=== PATIENT | female | born 1955 | race Caucasian/White ===

== ENCOUNTER 2020-07-06 14:23 | Outpatient (CLI) | payer MEDICARE, SELFPAY ==
--- NOTE | 2020-07-06 14:30 | MM_ITS ---
WS: [id number] BILATERAL SCREENING DIGITAL MAMMOGRAM WITH CAD HISTORY: SCREENING COMPARISON: None available. Bilateral CC and MLO views submitted. Computer aided detection analyzed. Breast composition: There are scattered areas of fibroglandular density. No suspicious masses, microc alcifications or architectural distortion. Benign calcifications in each breast. MM/[place] [id number] IMPRESSION: BI-RADS: 2-Benign FOLLOW UP: 1 Year Follow-up
== END 2020-07-06 14:24 | disposition home or self-care (01) ==
LOC: RADSHAW 14:28
PROVIDERS: PCP Family Medicine; Visit Provider Family Medicine
DX: Z12.31 Encounter for screening mammogram for malignant neoplasm of breast (principal)
CPT/HCPCS: 77067

== ENCOUNTER 2020-07-13 12:30 | Outpatient (CLI) | payer MEDICARE, SELFPAY ==
--- NOTE | 2020-07-13 12:45 | USCV_ITS ---
Rose Philip Age: 65 Gender: F : 1955 Exam Date: 07/13/2020 13:13 Ordering Phys: Tato Yang MD ([email or web address]) Technologist: Dick Nunez Exam Location: [facility] [place] Indication: BRUIT Risk Factors: Previous Vascular Surgery: Right Brachial BP: / Left Brachial BP: / Right Left Velocity (cm/s) Spectral Plaque Velocity (cm/s) Spectral Plaque Syst/Diast Broadening Syst/Diast Broadening 93.70/ 16.50 Prox CCA 95.00 / 28.50 84.90/ 26.50 Mid CCA 82.10 / 21.00 64.10/ 16.20 Distal CCA 69.20 / 20.40 114.40/32.90 Prox ICA 129.60/ 39.50 114.40/34.20 Mid ICA 111.10/ 32.10 120.90/30.20 Distal ICA 93.70 / 29.80 163.00 ECA 122.20 1.35 ICA/CCA 1.35 Antegrade Vertebral Antegrade 74.90/ 23.70 cm/s 54.30/ 13.00 cm/s Tri Subclavian Tri 83.10 89.60 CONCLUSIONS Right ICA stenosis <50%. Mild atheromatous plaque right carotid bulb/ICA. Left ICA stenosis 50-69% at the lower end of the range. Mild atheromatous plaque left carotid bulb/ICA. Normal antegrade Doppler flow noted in the right vertebral artery. Normal antegrade Doppler flow noted in the left vertebral artery. Trino Patton MD (Electronically Signed) Final Date: 13 July 2020 17:44 S
== END 2020-07-13 12:31 | disposition home or self-care (01) ==
LOC: US 12:31
PROVIDERS: PCP Family Medicine; Visit Provider Internal Medicine Cardiovascular Disease
DX: R09.89 Other specified symptoms and signs involving the circulatory and respiratory systems (principal); I65.23 Occlusion and stenosis of bilateral carotid arteries; I10 Essential (primary) hypertension
CPT/HCPCS: 93880

== ENCOUNTER 2021-04-26 07:26 | Outpatient (CLI) | payer MEDICARE, SELFPAY ==
--- NOTE | 2021-04-26 08:18 | ECG_ITS ---
[facility] Test Date: 2021-04-26 Pat Name: Rsoe Phiilp Department: Room: Gender: Female E Business Consultant: Alysa Mayo : 1955 Requested By: Cassandra Quintanilla Order Number: [id number] Reading MD: CASSANDRA QUINTANILLA Interpretive Statements NAME OF STUDY: EXERCISE SESTAMIBI STRESS TEST INDICATION: Chest Pain, EXERCISE DATA: The patient was exercised by Dangelo protocol. Baseline heart rate was 83 beats per minute. Baseline blood pressure was 173/101 millimeters of mercury. Target heart rate was 155 beats per minute. Maximum heart rate achieved was 149, which was 96 % of the target heart rate. Maximum blood pressure was 182/104 millimeters of mercury. Total exercise time was 3 minutes 30 seconds. Maximum METs achieved was 7.0, maximum VO2 was 24.5. The reason for ending the test was maximum effort achieved. The patient complained of shortness of during the stress test, which then resolved at the end of the test. ELECTROCARDIOGRAM: BASELINE: Showed sinus rhythm, normal axis, no significant ST-T changes at the baseline noted. EXERCISE: At the peak exercise level, no significant ST-T changes suggestive of ischemia noted. RECOVERY: During the recovery period, heart rate dropped appropriately. No significant ST-T changes in the recovery suggestive of ischemia noted. CONCLUSION: 1. Exercise capacity poor. 2. Heart rate response was appropriate. 3. Blood pressure response was hypertensive. 4. Symptoms not suggestive of ischemia. 5. Electrocardiogram portion of the stress test was not suggestive of ischemia. 6. Nuclear scan will be documented separately. Please note that due to under achievement of METs and lower exercise capacity EKG segment of the stress test will be of low probability Electronically Signed On 04-28-2021 21:14:41 CDT by CASSANDRA QUINTANILLA [email or web address].[email or web address]/store/[id number]
--- NOTE | 2021-04-26 08:18 | NMCV_ITS ---
NM chris perf SPECT r/s* [id number] Rose Philip Age: 65 Gender: F : 1955 Exam Date: 04/26/2021 09:24 Ordering Phys: Tato Yang MD ([email or web address]) Technologist: JAYY Galdamez Exam Location: [facility] Indications: ASHD STRESS TEST Please see separate stress test report in [facility] for full findings IMAGE PROTOCOL Rest/Stress 1 Exercise Day Radiopharmaceutical Dose (mCi) Administration Site Administered by Rest: Tc-99m 10.8 IV JAYY Chau Sestamibi Stress:Tc-99m 32.5 IV JAYY Chau Sestamibi Rest: 26-Apr-2021 60 Discovery 630 Stress: 26-Apr-2021 15 Discovery 630 Radiopharmaceutical was injected at 89images obtained in supine and prone position. % maximum heart rate. SPECT RESULTS Technical Quality: Excellent Raw Data Analysis: Normal Image Corrections: No attenuation or motion correction applied Summed Stress Score: 0 Summed Rest Score: 0 Summed Difference Score: 0 PERFUSION FINDINGS SPECT images demonstrate homogeneous tracer distribution throughout the myocardium. FUNCTIONAL RESULTS (calculated via Gated SPECT) Stress Image LV EF (%): 83 Stress EDV (mL):47 TID: 1.1 Stress ESV (mL):8 Rest Image LV EF (%): 83 FUNCTIONAL FINDINGS: There is normal left ventricular systolic function. IMPRESSIONS Myocardial perfusion imaging is normal. TID ratio is elevated at 1.1 which could be secondary left ventricle hypertrophy/subendocardial ischemia in the absence of other parameters for coronary artery disease. EKG segment will be documented separately. Tato Yang MD (Electronically Signed) Final Date: 26 April 2021 22:05 S
[2021-04-26 08:25] VITALS: BMI 31.8
[2021-04-26 10:19] VITALS: BP 161/85; PULSE 101
== END 2021-04-26 07:27 | disposition home or self-care (01) ==
PROVIDERS: PCP Family Medicine; Visit Provider Internal Medicine Cardiovascular Disease
DX: R07.9 Chest pain, unspecified (principal); I25.10 Atherosclerotic heart disease of native coronary artery without angina pectoris
CPT/HCPCS: 78452; 93017; A9500

== ENCOUNTER 2021-11-16 15:54 | Outpatient (CLI) | payer MEDICARE, SELFPAY ==
--- NOTE | 2021-11-16 15:56 | XRR_ITS ---
PROCEDURE INFORMATION: Exam: XR Chest Exam date and time: 11/16/2021 3:56 PM Age: 66 years old Clinical indication: Sternal or substernal pain; Additional info: Cp TECHNIQUE: Imaging protocol: XR of the chest. Views: 1 view. COMPARISON: CR Chest 2 views* [id number] 04/16/2017 4:12 PM FINDINGS: Lungs: Mild linear atelectasis or scar in the left lung base. The lungs are otherwise clear. Pleural spaces: Unremarkable. No pleural effusion. No pneumothorax. Heart/Mediastinum: Unremarkable. No cardiomegaly. Bones/joints: Unremarkable. XR/XR chest 1V portable [id number] IMPRESSION: No acute findings.
--- NOTE | 2021-11-16 15:56 | ECG_ITS ---
[facility] Test Date: 2021-11-16 Pat Name: Rose Philip Department: Room: Gender: Female System Operator: : 1955 Requested By: Ramesh Tabares Order Number: [id number] Kandi MD: Hema Sr M.D. Measurements Intervals [place] Rate: 71 P: 61 VA: 134 QRS: 40 QRSD: 97 T: 56 QT: 405 QTc: 441 Interpretive Statements SINUS RHYTHM INTERPRETATION BASED ON A DEFAULT AGE OF 40 YEARS Compared to ECG 04/16/2017 18:42:32 No significant changes Electronically Signed On 11-16-2021 20:05:43 CONCRETE BLOCK LAYER by Hema Sr M.D. [email or web address] general hospitalCardiva Medicaltrumbull regional medical centerHealth Strategies Group/store/NU/[id number] f
[2021-11-16 15:58] VITALS: BP 158/82; PULSE 69; RESP 16; O2SAT 96; BMI 32.9
--- NOTE | 2021-11-16 16:02 | W.ED.CHESTPA ---
HPI - Chest Pain General: Chief Complaint: Chest Pain Stated Complaint: L ARM PAIN/ HYPERTENSIVE Time Seen by Provider: 11/16/21 15:55 Source: patient and EMS Mode of arrival: EMS Limitations: no limitations History of Present Illness: 66-year-old female states that throughout the day today she been having some pain in her left shoulder along with high blood pressure states she took 2 clonidine and 3 nitro at home with little relief EMS states they gave her 1 nitro her blood pressure is now 158/82. States her pain is resolved. She does have a history of coronary disease with stents placed she had a stress test roughly 4 months ago that was negative. She denies any vomiting denies any shortness of breath. Associated symptoms: Deny abdominal pain, dyspnea, fever(s), nausea or vomiting Review of Systems Const: Denies: fever(s), chills, body aches or change in appetite Eyes: Denies: blurry vision or eye discomfort ENMT: Denies: throat pain or dental pain Card: Denies: chest pain Resp: Denies: dyspnea GI: Denies: abdominal pain, nausea, vomiting or diarrhea : Denies: dysuria Musc: Reports: extremity pain Skin/Breast: Denies: rash Neuro: Denies: headache(s) Psych: Denies: depression Maurice/Lymph: Denies: easy bruising All/Imm: Denies: urticaria PFSH ED PFSH: Medical History ASHD (arteriosclerotic heart disease) HTN (hypertension) Hx of coronary artery disease Family History Other Cancer Diabetes Physical Exam Const: COMMON NORMALS: no acute distress, patient oriented x3 and healthy appearing HENMT: COMMON NORMALS: normocephalic and atraumatic HEAD & SCALP: normocephalic and atraumatic Eye: COMMON NORMALS: Equal, round and reactive pupils present and EOMs intact bilaterally PUPIL: Yes Equal, round and reactive pupils present Neck/C-Spine: COMMON NORMALS: full ROM and supple Chest: COMMONS NORMALS: normal inspection of the chest and normal palpation of entire chest wall Resp: COMMON NORMALS: normal respiratory effort, No retractions, No use of accessory muscles and clear to auscultation bilaterally AUSCULTATION: clear to auscultation bilaterally Cardio: COMMON NORMALS: regular rate, regular rhythm and No murmurs present (Cardio) RATE: regular rate RHYTHM: regular rhythm GI: COMMON NORMALS: Normal to inspection, nondistended, normoactive bowel sounds present, Soft to palpation, non-tender and no masses PALPATION: Yes Soft to palpation Extremity: COMMON NORMALS: normal to inspection and full ROM Neuro: COMMON NORMALS: patient oriented x3, moves all extremities and no focal motor deficits Psych: COMMON NORMALS: mental status grossly normal, Normal thought process present and cooperative THOUGHT PROCESS: Normal thought process present Skin: COMMON NORMALS: no rashes or lesions noted and no wounds GENERAL SKIN EXAM: no rashes or lesions noted Course Vital Signs: Vital signs: Vital Signs Pulse Rate 68 11/16/21 19:11 Respiratory Rate 17 11/16/21 19:11 Blood Pressure 121/70 11/16/21 19:11 Pulse Oximetry 97 11/16/21 19:11 MDM - Chest Pain Medical Decision Making Patient presents here with chest pain her EKG x-ray and troponins here are all normal. Her blood pressure is improved as well. She has no signs of acute coronary syndrome she is stable for discharge she is to follow-up with her vertical punch operator and return if worsening she understands agrees to plan. Lab Data : 11/16/21 15:44 11/16/21 15:44 Radiology Impressions Chest X-Ray 11/16/21 15:56 IMPRESSION: No acute findings. Laboratory Results WBC 8.0 10^3/uL (4.0-10.0) 11/16/21 15:44 RBC 4.32 10^6/uL (4.1-5.3) 11/16/21 15:44 Hgb 12.8 g/dL (11.5-15.3) 11/16/21 15:44 Hct 40.8 % (37.0-47.0) 11/16/21 15:44 MCV 94.4 fl (81-99) 11/16/21 15:44 MCH 29.6 pg (28.0-34.0) 11/16/21 15:44 MCHC 31.4 g/dL (30.0-36.0) 11/16/21 15:44 RDW 13.4 % (12.1-15.1) 11/16/21 15:44 Plt Count 279 10^3/cmm (130-400) 11/16/21 15:44 MPV 10.8 fL (7.4-10.4) H 11/16/21 15:44 Neut % (Auto) 55.5 % 11/16/21 15:44 Lymph % (Auto) 30.8 % 11/16/21 15:44 Garza % (Auto) 7.1 % 11/16/21 15:44 Eos % (Auto) 5.6 % 11/16/21 15:44 Baso % (Auto) 0.6 % 11/16/21 15:44 Neut # (Auto) 4.45 10^3/uL (1.8-7.7) 11/16/21 15:44 Lymph # (Auto) 2.5 10^3/uL (0.8-4.8) 11/16/21 15:44 Garza # (Auto) 0.6 10^3/uL (0.2-0.9) 11/16/21 15:44 Eos # (Auto) 0.5 10^3/uL (0.0-0.8) 11/16/21 15:44 Baso # (Auto) 0.1 10^3/uL (0.0-0.1) 11/16/21 15:44 Nucleated RBC % (auto) 0 % 11/16/21 15:44 Nucleated RBCs # 0.0 /100WBC 11/16/21 15:44 Sodium 143 mmol/L (136-145) 11/16/21 15:44 Potassium 4.2 mmol/L (3.5-5.1) 11/16/21 15:44 Chloride 105 mmol/L (98-107) 11/16/21 15:44 Carbon Dioxide 24 mmol/L (22-29) 11/16/21 15:44 Anion Gap 18.2 (5-19) 11/16/21 15:44 BUN 23 mg/dL (8-23) 11/16/21 15:44 Creatinine 1.4 mg/dL (0.5-0.9) H 11/16/21 15:44 GFR Calculation 37.6 mL/min (90-130) L 11/16/21 15:44 Glucose 86 mg/dL (65-115) 11/16/21 15:44 Calculated Osmolality 299 mOsm/kg (285-295) H 11/16/21 15:44 Calcium 9.2 mg/dL (8.5-10.5) 11/16/21 15:44 Total Bilirubin 0.5 mg/dL (0.15-1.2) 11/16/21 15:44 AST 15 U/L (0-32) 11/16/21 15:44 ALT 13 U/L (0-33) 11/16/21 15:44 Alkaline Phosphatase 109 IU/L (35-105) H 11/16/21 15:44 Troponin T Baseline 11 ng/L (0-10) H 11/16/21 15:44 Troponin T 120 Minute 12.51 ng/L (0-10) H 11/16/21 18:13 Delta Troponin T 1.51 ABS# (0-10) 11/16/21 18:13 Total Protein 7.2 g/dL (6.6-8.7) 11/16/21 15:44 Albumin 4.7 g/dL (3.5-5.2) 11/16/21 15:44 Globulin 2.5 g/dL (1.3-4.6) 11/16/21 15:44 EKG Data EKG 1: I personally reviewed and interpreted this EKG as follows: EKG interpretation date: 11/16/21 EKG interpretation time: 16:12 Interpretation: nsr hr [address] or t wave abnormalities qrs 97 qtc 427 Discharge Plan Discharge Patient Disposition: Home Clinical Impression: Chest pain, HTN (hypertension) Condition: Stable Prescriptions: No Action diphenhydramine-acetaminophen [Tylenol PM Extra Strength] 25-500 mg tablet 1 tab PO Q6H PRN0RF melatonin 10 mg capsule 10 mg PO DAILY 0RF fluoxetine 40 mg capsule 40 mg PO DAILY 0RF clonazepam 0.5 mg tablet 0.5 mg PO DAILY PRN (Reason: anxiety) 0RF nitroglycerin 0.4 mg tablet, sublingual 0.4 mg sublingual Q5M PRN (Reason: chest pain) 0RF temazepam 30 mg capsule 30 mg PO QDAY 30 Days Qty: 30 0RF Rx Instructions: Please call to schedule an appointment before further refills cyanocobalamin (vitamin B-12) 1,000 mcg/mL solution 1,000 mcg IM .qweekly 28 Days Qty: 10 3RF atorvastatin 20 mg tablet 20 mg PO DAILY Qty: 90 3RF aspirin [Adult Low Dose Aspirin] 81 mg tablet,delayed release (DR/EC) 81 mg PO DAILY Qty: 90 3RF tizanidine 2 mg tablet 2 mg PO .at bedtime PRN (Reason: muscle spasticity) Qty: 30 3RF clonidine HCl 0.1 mg tablet 0.1 mg PO QID PRN (Reason: hypertensive emergency) Qty: 360 3RF BD Insulin Syringe 1 mL 25 x 1 syringe See Rx Instructions .ROUTE .COMPLEX Qty: 4 6RF Dose Instruction: USE TO GIVE B12 INJECTION EVERY WEEK Rx Instructions: USE TO GIVE B12 INJECTION EVERY WEEK meloxicam 15 mg tablet See Rx Instructions .ROUTE .COMPLEX Qty: 30 2RF Dose Instruction: TAKE 1 TABLET BY MOUTH EVERY DAY Rx Instructions: TAKE 1 TABLET BY MOUTH EVERY DAY losartan-hydrochlorothiazide 50-12.5 mg tablet 1 tab PO DAILY Qty: 90 3RF amlodipine 5 mg tablet See Rx Instructions .ROUTE .COMPLEX Qty: 90 3RF Dose Instruction: TAKE 1 TABLET BY MOUTH EVERY DAY Rx Instructions: TAKE 1 TABLET BY MOUTH EVERY DAY isosorbide mononitrate 30 mg tablet extended release 24 hr 15 mg PO DAILY Qty: 45 3RF Discharge Orders: Discharge ED (Routine); Ordered 11/16/21 Ordered By: Ramesh Tabares Referrals: Hema Sr MD [Physician] - 1-3 days Gurvinder Ontiveros MD [Primary Care Provider] - Discharge Diet: Advance as tolerated Discharge Activity: Resume usual activity Patient Instructions: Chest Pain (ED), Hypertension (ED) Coding Level of Care Code ED Underwriting Account Representative for Chg Fwd Exam Comprehensive
[2021-11-16 16:09] LABS: Basophils # 0.1 10^3/uL (0.0-0.1); Basophils % 0.6 %; Eosinophils # 0.5 10^3/uL (0.0-0.8); Eosinophils % 5.6 %; Hematocrit 40.8 % (37.0-47.0); Hemoglobin 12.8 g/dL (11.5-15.3); Lymphocytes # 2.5 10^3/uL (0.8-4.8); Lymphocytes % 30.8 %; Mean Corpuscular HGB Conc 31.4 g/dL (30.0-36.0); Mean Corpuscular Hemoglobin 29.6 pg (28.0-34.0); Mean Corpuscular Volume 94.4 fl (81-99); Mean Platelet Volume 10.8 fL (7.4-10.4); Monocytes # 0.6 10^3/uL (0.2-0.9); Monocytes % 7.1 %; Neutrophils # 4.45 10^3/uL (1.8-7.7); Neutrophils % 55.5 %; Nucleated Red Blood Cells % 0 %; Platelet Count 279 10^3/cmm (130-400); Red Blood Count 4.32 10^6/uL (4.1-5.3); Red Cell Distribution Width 13.4 % (12.1-15.1)
[2021-11-16 16:26] LABS: Alanine Aminotransferase 13 U/L (0-33); Albumin Level 4.7 g/dL (3.5-5.2); Alkaline Phosphatase 109 IU/L (35-105); Anion Gap 18.2 (5-19); Aspartate Amino Transferase 15 U/L (0-32); Blood Urea Nitrogen 23 mg/dL (8-23); Calcium 9.2 mg/dL (8.5-10.5); Carbon Dioxide 24 mmol/L (22-29); Chloride 105 mmol/L (98-107); Globulin 2.5 g/dL (1.3-4.6); Glomerular Filtration Rate 37.6 mL/min (90-130); Glucose 86 mg/dL (65-115); Osmolality Calculated 299 mOsm/kg (285-295); Potassium 4.2 mmol/L (3.5-5.1); Sodium 143 mmol/L (136-145); Total Bilirubin 0.5 mg/dL (0.15-1.2); Total Protein 7.2 g/dL (6.6-8.7)
[2021-11-16 16:32] LABS: Troponin(5th) Baseline 11 ng/L (0-10)
[2021-11-16 17:37] VITALS: BP 139/76; PULSE 72; RESP 16; O2SAT 94
--- NOTE | 2021-11-16 17:56 | ECG_ITS ---
[facility] Test Date: 2021-11-16 Pat Name: Rose Philip Department: Room: Gender: Female Contract Processor: : 1955 Requested By: Ramesh Tabares Order Number: [id number] Kandi MD: Hema Sr M.D. Measurements Intervals [place] Rate: 65 P: 56 [place]: 134 QRS: 38 QRSD: 92 T: 52 QT: 411 QTc: 428 Interpretive Statements SINUS RHYTHM Compared to ECG 04/16/2017 18:42:32 No significant changes Electronically Signed On 11-16-2021 20:14:06 FISH HATCHERY INSPECTOR by Hema Sr M.D. [email or web address].[employer]/store/OM/[id number]
[2021-11-16 18:57] LABS: Troponin 5 2HR 12.51 ng/L (0-10)
[2021-11-16 19:01] LABS: Troponin 5 2HR Delta 1.51 ABS# (0-10)
[2021-11-16 19:11] VITALS: BP 121/70; PULSE 68; RESP 17; O2SAT 97
[2021-11-16 19:31] VITALS: BP 131/82; PULSE 69; RESP 17; O2SAT 95
--- NOTE | 2021-11-20 12:14 | XRR_ITS ---
PROCEDURE INFORMATION: Exam: XR Right Ribs Exam date and time: 11/20/2021 12:14 PM Age: 66 years old Clinical indication: Fall with blunt trauma. Pain after fall. TECHNIQUE: Imaging protocol: XR Right ribs. Views: 2 views. COMPARISON: CR XR chest 1V portable [id number] 11/16/2021 4:26 PM FINDINGS: Bones/joints: No acute fracture is identified. Soft tissues: The visualized chest is grossly clear. No gross soft tissue swelling. XR/XR ribs RT 2V* [id number] IMPRESSION: 1. No acute fracture is identified. 2. Consider CT to further assess if clinically warranted.
--- NOTE | 2021-11-21 15:45 | DCPLANNER ---
Addendum entered by Isis Stoll 12/22/21 08:34: Patient had a follow up appointment scheduled for 11.29.21 with LOCKSTITCHERSarina at [facility] - patient did attend appointment. Original Note: software test manager had message to schedule a follow up appointment for patient with [facility]. software test manager called [facility], spoke with Aruna, gave clinic patients information. A follow up appointment was scheduled for Monday, November 29, 2021 at 2:00 with LOCKSTITCHER, Sarina Ashby. software test manager called and gave patient the follow up appointment.
== END 2021-11-20 11:47 | disposition home or self-care (01) ==
LOC: ER 19:10 → RAD 11-20 11:51
PROVIDERS: Emergency Provider Emergency Medicine; PCP Family Medicine; Visit Provider Nurse Practitioner
DX: R07.81 Pleurodynia (principal); I10 Essential (primary) hypertension
CPT/HCPCS: 71045; 71100; 80053; 84484; 85025; 93005; 99283; 99284

== ENCOUNTER → 2021-11-29 13:44 | Outpatient (BNVA) | payer MEDICARE, SELFPAY | PROVIDERS: PCP Family Medicine; Visit Provider Nurse Practitioner Family | DX: I65.22 Occlusion and stenosis of left carotid artery (principal); R07.9 Chest pain, unspecified; Z87.891 Personal history of nicotine dependence; I25.10 Atherosclerotic heart disease of native coronary artery without angina pectoris | CPT/HCPCS: 99214 ==

== ENCOUNTER → 2021-12-15 13:48 | Outpatient (BNVA) | payer MEDICARE, SELFPAY | PROVIDERS: PCP Family Medicine; Visit Provider Internal Medicine | DX: R06.02 Shortness of breath (principal); I10 Essential (primary) hypertension; I25.10 Atherosclerotic heart disease of native coronary artery without angina pectoris; Z87.891 Personal history of nicotine dependence | CPT/HCPCS: 99214 ==

== ENCOUNTER 2022-01-04 07:45 | Outpatient (CLI) | payer MEDICARE, SELFPAY ==
--- NOTE | 2022-01-04 08:00 | USCV_ITS ---
Rose Philip Age: 66 Gender: F : 1955 Exam Date: 01/04/2022 07:51 Ordering Phys: Sarina Ashby Technologist: Exam Location: [place] Indication: cca disease Risk Factors: None Previous Vascular Surgery: Right Brachial BP: / Left Brachial BP: / Right Left Velocity (cm/s) Spectral Plaque Velocity (cm/s) Spectral Plaque Syst/Diast Broadening Syst/Diast Broadening 60.60/ 18.70 Prox CCA 69.50 / 19.80 71.70/ 22.10 Mid CCA 70.60 / 17.60 62.80/ 20.35 Distal CCA 72.80 / 27.60 82.70/ 35.30 Hetro Prox ICA 97.20 / 27.80 Hetro 94.80/ 27.60 Hetro Mid ICA 118.10/ 33.30 Hetro 94.80/ 26.50 Distal ICA 94.50 / 23.60 90.40 ECA 95.90 1.32 ICA/CCA 1.62 Antegrade Vertebral Antegrade 62.80/ 18.70 cm/s / cm/s Tri Subclavian Tri 99.20 90.90 CONCLUSIONS Right ICA stenosis <50%. Mild atheromatous plaque right carotid bulb/ICA. Left ICA stenosis <50%. Mild atheromatous plaque left carotid bulb/ICA. Normal antegrade Doppler flow noted in the left vertebral artery. Normal antegrade Doppler flow noted in the right vertebral artery. Trino Patton MD (Electronically Signed) Final Date: 05 January 2022 11:25 S
== END 2022-01-04 07:46 | disposition home or self-care (01) ==
LOC: RAD 07:46
PROVIDERS: PCP Family Medicine; Visit Provider Nurse Practitioner Family
DX: I65.23 Occlusion and stenosis of bilateral carotid arteries (principal)
CPT/HCPCS: 93880

== ENCOUNTER 2022-01-10 07:05 | Outpatient (CLI) | payer MEDICARE, SELFPAY ==
[2022-01-10 07:09] VITALS: BMI 34.2
--- NOTE | 2022-01-10 07:10 | ECG_ITS ---
[facility] Test Date: 2022-01-10 Pat Name: Rose Philip Department: Room: Gender: Female Count Room Clerk: : 1955 Requested By: Robert Flynn Order Number: [id number] Kandi MD: Robert Flynn M.D. Interpretive Statements NAME OF STUDY: LEXISCAN SESTAMIBI STRESS TEST INDICATION: [Chest Pain; Shortness of Breath] Procedure: At the baseline, the blood pressure was 164/97 mmHg with a heart rate of 57 bpm. The electrocardiogram showed sinus bradycaria, normal axis with normal ST and T's. The Lexiscan was infused over a period of 20 seconds. A total of 0.4 mg of Lexiscan was infused. The stress phase was continued for a total of 5 minutes. Heart rate was at the end of stress phase was 79 bpm and a blood pressure of 158/95 mmHg. The EKG at the peak infusion revealed since normal sinus rhythm with no significant ST-T wave changes. Sestamibi was injected 20 seconds after the Lexiscan infusion. Blood pressure at the end of recovery phase was 165/101 mmHg with a heart rate of 72 bpm. Conclusion: 1. Normal EKG response to Lexiscan infusion 2. No Lexiscan induced chest pain or cardiac arrhythmia. 3. Normal blood pressure and heart rate response. 4. Sestamibi/sestamibi perfusion scan pending; see separate report. Electronically Signed On 02-05-2022 21:34:48 CDT by Robert Flynn M.D. [id number]
--- NOTE | 2022-01-10 07:10 | NMCV_ITS ---
NM chris perf SPECT r/s* [id number] Rose Philip Age: 66 Gender: F : 1955 Exam Date: 01/10/2022 08:23 Ordering Phys: Robert Flynn M.D ([email or web address]) Technologist: JAYY Galdamez Exam Location: [facility] Indications: SHORTNESS OF BREATH STRESS TEST Please [facility] IMAGE PROTOCOL Rest/Stress 1 Lexiscan Day Radiopharmaceutical Dose (mCi) Administration Site Administered by Rest: Tc-99m 10.7 IV JAYY Chau Sestamibi Stress:Tc-99m 32.9 IV JAYY Galdamez Sestamikaylyn Rest: 10-Jan-2022 60 Discovery 630 Stress: 10-Jan-2022 30 Discovery 630 0.4mg Lexiscan. Images obtained in supine and prone position. SPECT RESULTS Technical Quality: Excellent Raw Data Analysis: Normal Image Corrections: No attenuation or motion correction applied Summed Stress Score: 5 Summed Rest Score: 2 Summed Difference Score: 3 PERFUSION FINDINGS There is small in size, mostly fixed perfusion defect in the apical inferior and inferior wall. This is consistent with attenuation artifact vs small sized prior infarct. No significant ischemia FUNCTIONAL RESULTS (calculated via Gated SPECT) Stress Image LV EF (%): 87 Stress EDV (mL):60 TID: 0.88 Stress ESV (mL):8 FUNCTIONAL FINDINGS: There is normal left ventricular systolic function. IMPRESSIONS 1. Small sized, mostly fixed perfusion defect is seen in apical inferior and inferior wall. This is consistent with small sized prior infarct in this territory vs attenuation artifact. No significant ischemia is seen 2. LV systolic function is normal Robert Flynn MD (Electronically Signed) Final Date: 10 January 2022 13:30 S
[2022-01-10] MEDS: regadenoson 0.4 Mg/5 ml Syringe IVP (09:02)
[2022-01-10 10:02] VITALS: BP 166/99; PULSE 78
== END 2022-01-10 07:06 | disposition home or self-care (01) ==
LOC: CDL 07:06
PROVIDERS: PCP Family Medicine; Visit Provider Internal Medicine
DX: R06.02 Shortness of breath (principal); R07.9 Chest pain, unspecified
CPT/HCPCS: 78452; 93017; A9500; J2785

== ENCOUNTER → 2022-02-16 15:31 | Outpatient (BNVA) | payer MEDICARE, SELFPAY | PROVIDERS: PCP Family Medicine; Visit Provider Internal Medicine | DX: I25.10 Atherosclerotic heart disease of native coronary artery without angina pectoris (principal); I10 Essential (primary) hypertension; I65.22 Occlusion and stenosis of left carotid artery; Z87.891 Personal history of nicotine dependence | CPT/HCPCS: 99214 ==

== ENCOUNTER → 2022-07-13 09:28 | Outpatient (BNVA) | payer MEDICARE, SELFPAY | PROVIDERS: Visit Provider Family Medicine | DX: I12.9 Hypertensive chronic kidney disease with stage 1 through stage 4 chronic kidney disease, or unspecified chronic kidney disease (principal); I25.10 Atherosclerotic heart disease of native coronary artery without angina pectoris; N18.30 Chronic kidney disease, stage 3 unspecified | CPT/HCPCS: 80053; 80061; 82088; 82607; 82652; 84439; 84443; 85025 ==

== ENCOUNTER 2022-08-03 14:10 | Outpatient (CLI) | payer MEDICARE, SELFPAY ==
--- NOTE | 2022-08-03 15:01 | XRR_ITS ---
PROCEDURE INFORMATION: Exam: XR Lumbosacral Spine Exam date and time: 08/03/2022 3:01 PM Age: 67 years old Clinical indication: Low back pain; Additional info: Chronic low back pain TECHNIQUE: Imaging protocol: Radiologic exam of the lumbosacral spine. Views: 2 or 3 views. COMPARISON: No relevant prior studies available. FINDINGS: Bones/joints: Generalized osteopenia is seen. There is intervertebral disc space narrowing at multiple levels corresponding to moderate osteoarthritis. No acute fracture. Normal alignment. Soft tissues: Unremarkable. XR/XR lumbar spine 2-3V* [id number] IMPRESSION: 1. Osteopenia and moderate osteoarthritis. 2. Otherwise negative for acute bony abnormality
== END 2022-08-03 14:11 | disposition home or self-care (01) ==
LOC: RAD 14:15
PROVIDERS: PCP Family Medicine; Visit Provider Family Medicine
DX: G89.29 Other chronic pain (principal); M85.88 Other specified disorders of bone density and structure, other site; M47.816 Spondylosis without myelopathy or radiculopathy, lumbar region
CPT/HCPCS: 72100

== ENCOUNTER 2022-08-14 13:10 | Outpatient (CLI) | payer MEDICARE, SELFPAY ==
--- NOTE | 2022-08-14 13:30 | US_ITS ---
WS: [id number] RENAL ULTRASOUND HISTORY: CKD IIIb, refractory hypertension COMPARISON: 11/02/2017 TECHNIQUE: 2-D and color Doppler imaging of the kidney submitted. Right kidney: 8.9 cm x 5.7 cm x 3.2 cm. Low normal size kidney. Normal echogenicity. No cortical thinning. No mass or obstruction. Left kidney: 8.1 cm x 4.4 cm x 4.1 cm. Low normal kidney. No hydronephrosis or mass. No cortical thinning. Aorta: Normal. Urinary Bladder: Normal distention. US/US renal BI* [id number] IMPRESSION: 1. No obstruction or mass. 2. Low normal size kidneys. No change.
== END 2022-08-14 13:11 | disposition home or self-care (01) ==
LOC: RAD 13:13
PROVIDERS: PCP Family Medicine; Visit Provider Family Medicine
DX: I12.9 Hypertensive chronic kidney disease with stage 1 through stage 4 chronic kidney disease, or unspecified chronic kidney disease (principal); N18.32 Chronic kidney disease, stage 3b; I25.10 Atherosclerotic heart disease of native coronary artery without angina pectoris
CPT/HCPCS: 76770

== ENCOUNTER → 2023-04-24 08:22 | Outpatient (BNVA) | payer MEDICARE, SELFPAY | PROVIDERS: PCP Family Medicine; Referring Provider Family Medicine; Visit Provider Physician Assistant | DX: M47.816 Spondylosis without myelopathy or radiculopathy, lumbar region (principal); M48.061 Spinal stenosis, lumbar region without neurogenic claudication | CPT/HCPCS: 72110; 99203 ==

== ENCOUNTER 2023-05-15 06:58 | Outpatient (CLI) | payer MEDICARE, SELFPAY ==
--- NOTE | 2023-05-15 07:15 | MR_ITS ---
WS: [email or web address] MRI LUMBAR SPINE NONCONTRAST HISTORY: pain COMPARISON: 04/24/2023 TECHNIQUE: Sagittal and axial multisequence imaging is submitted. Mild curvature and scoliosis thoracolumbar spine. Disc spaces are narrowed and desiccated with mild d isc bulging throughout the thoracic spine. Posterior lumbar alignment is normal. No fractures or marrow edema. Disc spaces are narrowed most sig nificant disc space narrowing at L2-3. Disc spaces and vertebral body heights are well-preserved. Conus terminates normally at L1-2 disc level. L1-L2: Mild disc bulging. Mild facet arthritis. Mild ligamentum flavum hypertrophy. Very shallow left paracentral disc protrusion. No significant stenosis. L2-L3: Moderate annular disc bulging asymmetric to the left. Moderate-sized left foraminal disc protr usion. Disc contacts and deforms the thecal sac narrowing the subarticular recesses. Moderate bilater al foraminal and subarticular recess stenosis with mild central stenosis. There is mild encroachment upon the L2 and L3 nerve roots. Slightly greater encroachment on the left nerve roots due to the disc protrusion. Moderate bilateral facet and ligamentum flavum hypertrophy. L3-L4: Very mild disc bulging with mild ligamentum flavum and facet arthritis. Mild bilateral foramin al stenosis, left greater than right. L4-L5: Mild annular disc bulging with marked ligamentum flavum hypertrophy. Ligamentum flavum hypertr ophy is just greater on the left. No focal disc protrusions. Moderate facet arthritis. Combination of findings resulting in mild central, subarticular recess and foraminal stenosis. L5-S1: Mild disc bulging. No disc protrusion. Moderate to severe bilateral facet joint arthritis. Paravertebral soft tissues negative for acute findings. 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 Diverticulum measures 2.7 x 2 .8 cm. IMPRESSION: 1. No acute lumbar spine fracture. 2. L2-3: Asymmetric disc bulging at L2-3 with a moderate size left foraminal disc protrusion. 3. L2-3: Mild central stenosis with moderate bilateral foraminal subarticular recess stenosis. Disc e ncroachment greatest on the left L2 and L3 nerve roots. 4. L3-4: Mild bilateral foraminal stenosis, left greater than right. 5. L4-5: Mild central, subarticular recess and foraminal stenosis. 6. Facet joint arthritis and ligamentum flavum hypertrophy throughout the lumbar spine. Most signific ant at L5-S1, L2-3 and L4-5.
== END 2023-05-15 06:59 | disposition home or self-care (01) ==
PROVIDERS: PCP Family Medicine; Visit Provider Physician Assistant
DX: M54.16 Radiculopathy, lumbar region (principal); M51.36 Other intervertebral disc degeneration, lumbar region; M48.061 Spinal stenosis, lumbar region without neurogenic claudication; M47.817 Spondylosis without myelopathy or radiculopathy, lumbosacral region
CPT/HCPCS: 72148

== ENCOUNTER → 2023-05-17 12:54 | Outpatient (BNVA) | payer MEDICARE, SELFPAY | PROVIDERS: PCP Family Medicine; Visit Provider Physician Assistant | DX: G96.191 Perineural cyst (principal); M51.36 Other intervertebral disc degeneration, lumbar region; M71.38 Other bursal cyst, other site; M48.061 Spinal stenosis, lumbar region without neurogenic claudication; M47.816 Spondylosis without myelopathy or radiculopathy, lumbar region | CPT/HCPCS: 99213 ==

== ENCOUNTER → 2023-05-22 13:31 | Outpatient (BNVA) | payer MEDICARE, SELFPAY | PROVIDERS: PCP Family Medicine; Visit Provider Family Medicine | DX: M54.16 Radiculopathy, lumbar region (principal); I10 Essential (primary) hypertension; N18.30 Chronic kidney disease, stage 3 unspecified; R51.9 Headache, unspecified; E83.42 Hypomagnesemia; E83.52 Hypercalcemia | CPT/HCPCS: 80053; 80061; 81000; 82043; 82306; 83735; 84443; 85025; 85651; 86140 ==

== ENCOUNTER → 2023-06-26 10:42 | Outpatient (BNVA) | payer MEDICARE, SELFPAY | PROVIDERS: PCP Family Medicine; Visit Provider Anesthesiology Pain Medicine | DX: G89.29 Other chronic pain; M51.36 Other intervertebral disc degeneration, lumbar region; M48.061 Spinal stenosis, lumbar region without neurogenic claudication; M47.816 Spondylosis without myelopathy or radiculopathy, lumbar region; G96.191 Perineural cyst; M47.812 Spondylosis without myelopathy or radiculopathy, cervical region | CPT/HCPCS: 99205 ==

== ENCOUNTER → 2023-07-16 14:02 | Outpatient (BNVA) | payer MEDICARE, SELFPAY | PROVIDERS: PCP Family Medicine; Visit Provider Anesthesiology Pain Medicine | DX: G89.29 Other chronic pain; M47.816 Spondylosis without myelopathy or radiculopathy, lumbar region; M51.36 Other intervertebral disc degeneration, lumbar region | CPT/HCPCS: 64483; 64484; J1030; J3490 ==

== ENCOUNTER → 2023-08-01 08:08 | Outpatient (BNVA) | payer MEDICARE, SELFPAY | PROVIDERS: PCP Family Medicine; Visit Provider Family Medicine | DX: N39.0 Urinary tract infection, site not specified (principal) | CPT/HCPCS: 81000 ==

== ENCOUNTER → 2023-08-09 13:53 | Outpatient (BNVA) | payer MEDICARE, SELFPAY | PROVIDERS: PCP Family Medicine; Referring Provider Family Medicine; Visit Provider Nurse Practitioner Family | DX: L82.1 Other seborrheic keratosis (principal); L82.0 Inflamed seborrheic keratosis; D22.5 Melanocytic nevi of trunk; L57.8 Other skin changes due to chronic exposure to nonionizing radiation; L81.4 Other melanin hyperpigmentation; L57.0 Actinic keratosis | CPT/HCPCS: 17000; 17110; 99203 ==

== ENCOUNTER → 2023-09-11 13:23 | Outpatient (BNVA) | payer MEDICARE, SELFPAY | PROVIDERS: PCP Family Medicine; Visit Provider Family Medicine | DX: R39.9 Unspecified symptoms and signs involving the genitourinary system (principal); N39.0 Urinary tract infection, site not specified; A49.9 Bacterial infection, unspecified; J20.9 Acute bronchitis, unspecified | CPT/HCPCS: 81000; 87086 ==

== ENCOUNTER → 2023-10-16 11:01 | Outpatient (BNVA) | payer MEDICARE, SELFPAY | PROVIDERS: PCP Family Medicine; Visit Provider Family Medicine | DX: R31.9 Hematuria, unspecified (principal) | CPT/HCPCS: 85025 ==

== ENCOUNTER 2023-10-23 06:34 | Outpatient (CLI) | payer MEDICARE, SELFPAY ==
--- NOTE | 2023-10-23 06:45 | US_ITS ---
WS: [email or web address] Complete ABDOMINAL ULTRASOUND HISTORY: CKD, Hematuria COMPARISON: None available. Liver: 15.5 cm in length. Normal size liver and echogenicity. No bile duct dilatation or mass. Portal Vein: Normal hepatopetal flow with monophasic waveform. Gallbladder: Normally distended gallbladder. Small foci which are nonshadowing in the gallbladder. Th is may be small tumefactive sludge or nonshadowing stones or a tiny polyp. No pericholecystic fluid. CBD: 0.4 cm Pancreas: Normal size and echogenicity. Right kidney: 8.2 cm x 4.4 x 4.1 cm. Cortex: 1.2 cm. Low normal size kidney. No hydronephrosis or mass. Left kidney: 8.1 cm x 4.5 cm x 3.7 cm. Cortex: 1.2 cm. Low normal size kidney. No hydronephrosis or mass. Spleen: 9.2 cm in length. Normal. Aorta and IVC: Unremarkable abdominal aorta and IVC. Impression: 1. Nonshadowing focus in the gallbladder. Differential includes tumefactive sludge, adherent gallst one or polyp. No evidence for acute cholecystitis. 2. Kidneys are low normal size. No hydronephrosis or mass.
== END 2023-10-23 06:35 | disposition home or self-care (01) ==
LOC: RAD 06:34
PROVIDERS: PCP Family Medicine; Visit Provider Family Medicine
DX: N18.9 Chronic kidney disease, unspecified (principal); R31.9 Hematuria, unspecified; R93.5 Abnormal findings on diagnostic imaging of other abdominal regions, including retroperitoneum
CPT/HCPCS: 76700

== ENCOUNTER → 2024-01-09 12:01 | Outpatient (BNVA) | payer MEDICARE, SELFPAY | PROVIDERS: PCP Family Medicine; Visit Provider Family Medicine | DX: R31.9 Hematuria, unspecified (principal); N18.31 Chronic kidney disease, stage 3a | CPT/HCPCS: 80053; 81003; 85025 ==

== ENCOUNTER → 2024-02-19 09:44 | Outpatient (BNVA) | payer MEDICARE, SELFPAY | PROVIDERS: PCP Family Medicine; Visit Provider Family Medicine | DX: I10 Essential (primary) hypertension (principal); N18.31 Chronic kidney disease, stage 3a; I67.4 Hypertensive encephalopathy | CPT/HCPCS: 80053 ==

== ENCOUNTER 2024-02-27 13:37 | Outpatient (CLI) | payer MEDICARE, SELFPAY ==
--- NOTE | 2024-02-27 13:45 | CT_ITS ---
WS: [email or web address] CT ANGIOGRAM CEREBRAL AND CAROTID ARTERIES HISTORY: Recent episode of confusion, loss of balance, carotid stenosis TECHNIQUE: CT angiogram is performed of the carotid and cerebral arteries. During arterial injection imaging is obtained from the skull vertex to the aortic arch in 1.25 mm imaging. Coronal and sagittal reformats are submitted. Additional multi planar reformats of the carotid and cerebral arteries are submitted, MIP imaging also reviewed. NASCET criteria utilized. [facility] CT scans at [facility] us e at least one of these dose optimization techniques: automated exposure control; mA and/or kV adjust ment per patient size (includes targeted exams where dose is matched to clinical indication); or iter ative reconstruction. CONTRAST: Omnipaque 350; 100 mL IV. DLP: 1194.20 mGy.cm COMPARISON: 11/23/2017, carotid ultrasound 12/03/[address] head: No hemorrhage or mass effect. Very mild volume loss and small vessel disease. Carotid Angiogram: Right carotid: Common carotid artery: Arises normally from the innominate artery. No significant plaque or stenosis. Internal carotid artery: Small amount of plaque at the bifurcation. No significant stenosis. Stenosis is estimated at approximately 50%. External carotid artery: Patent. Left carotid: Common carotid artery: Arises normally from the aorta. No significant plaque or stenosis. Internal carotid artery: Small amount of calcified plaque at the bifurcation and intimal thickening. No significant stenosis. Stenosis less than 50%. External carotid artery: Patent. Right vertebral artery: Dominant. Left vertebral artery: Small caliber but patent. Similar to the prior exam. Subclavian arteries: No stenosis or significant abnormality. Upper thorax: Normal. Thyroid gland: Normal. Osseous structures: Cervical spondylosis. CEREBRAL ANGIOGRAM: Intracranial vertebral arteries: Normal with no significant atherosclerosis. Basilar artery: No significant stenosis or occlusion. No aneurysm. Intracranial Internal carotid arteries: No stenosis. Mild plaque in the cavernous carotid arteries. N o aneurysm. Middle cerebral arteries: Normal. Anterior cerebral arteries and ACOM: Normal. Posterior cerebral arteries and PCOM's: Dominant LEFT communicating artery arises from the distal LEF T ICA as before. Dural venous sinuses are normally enhancing. Mastoid air cells: Normal. Paranasal sinuses: Normal. Calvarium: Normal. CT/CT angio headneck* [id number] IMPRESSION: 1. No high-grade cervical carotid artery stenosis. No significant progression since 11/23/2017. 2. RIGHT cervical carotid artery stenosis estimated at 50%. 3. LEFT cervical carotid artery stenosis less than 50%. 4. No cervical of Pierre aneurysm or occlusions. 5. Normal vertebral arteries.
[2024-02-27] MEDS: iohexol 350 mg/mL 500 mL Btl (per mL) IV (14:03)
== END 2024-02-27 13:38 | disposition home or self-care (01) ==
LOC: RAD 13:38
PROVIDERS: PCP Family Medicine; Visit Provider Family Medicine
DX: G45.9 Transient cerebral ischemic attack, unspecified (principal); I67.4 Hypertensive encephalopathy; M47.812 Spondylosis without myelopathy or radiculopathy, cervical region
CPT/HCPCS: 70496; 70498; Q9967

== ENCOUNTER → 2024-03-26 11:00 | Outpatient (BNVA) | payer MEDICARE, SELFPAY | PROVIDERS: PCP Family Medicine; Visit Provider Family Medicine | DX: I67.4 Hypertensive encephalopathy (principal); I10 Essential (primary) hypertension | CPT/HCPCS: 80048; 82607; 84443 ==

== ENCOUNTER 2024-04-10 10:24 | Outpatient (CLI) | payer MEDICARE, SELFPAY ==
--- NOTE | 2024-04-10 10:35 | MM_ITS ---
WS: [email or web address] BILATERAL SCREENING DIGITAL TOMOSYNTHESIS MAMMOGRAM WITH CAD HISTORY: SCREENING COMPARISON: 07/06/2020 Bilateral CC and MLO views with tomosynthesis and synthetic mammography submitted. Computer aided det ection analyzed. Breast composition: There are scattered areas of fibroglandular density. No suspicious masses, microc alcifications or architectural distortion. Benign calcifications in each breast. MM/[place] [id number] IMPRESSION: BI-RADS: 2-Benign FOLLOW UP: 1 Year Follow-up
== END 2024-04-10 10:25 | disposition home or self-care (01) ==
LOC: RAD 10:24
PROVIDERS: PCP Family Medicine; Visit Provider Family Medicine
DX: Z12.31 Encounter for screening mammogram for malignant neoplasm of breast (principal); R92.323 Mammographic fibroglandular density, bilateral breasts; R92.1 Mammographic calcification found on diagnostic imaging of breast
CPT/HCPCS: 77063; 77067

== ENCOUNTER → 2024-08-11 08:50 | Outpatient (BNVA) | payer MEDICARE, SELFPAY | PROVIDERS: PCP Family Medicine; Visit Provider Nurse Practitioner Family | DX: L82.1 Other seborrheic keratosis (principal); D22.5 Melanocytic nevi of trunk; L57.8 Other skin changes due to chronic exposure to nonionizing radiation; L81.4 Other melanin hyperpigmentation; L82.0 Inflamed seborrheic keratosis; L29.89 Other pruritus; L53.8 Other specified erythematous conditions; D48.5 Neoplasm of uncertain behavior of skin | CPT/HCPCS: 11102; 17110; 99213 ==

== ENCOUNTER 2024-08-20 15:32 | Outpatient (CLI) | payer MEDICARE, SELFPAY ==
--- NOTE | 2024-08-20 16:00 | MR_ITS ---
WS: [email or web address] MRI HEAD WITHOUT CONTRAST TECHNIQUE: Sagittal T1, T2 axial, T2 axial FLAIR, axial and coronal T1 images, axial susceptibility w eighted imaging, axial diffusion weighted images, and coronal T2 images were obtained. CLINICAL INFORMATION: R41.3 - Other amnesia COMPARISON: None. FINDINGS: No evidence of restricted diffusion to suggest acute ischemia. Ventricular system and basal cisterns are patent. Normal posterior fossa. Tiny chronic lacunar infarct RIGHT cerebellum. Small vessel cardona es in the espinoza. Normal vascular flow voids at the skull base. Paranasal sinuses and mastoid air cells are well aerated. Normal posterior nasopharynx. Small chronic lacunar infarct RIGHT thalamus. No hemosiderin on the susceptibly weighted images. Normal optic chiasm and pituitary infundibulum. Te mporal lobes and hippocampal formations are normal in appearance. MR/MR head wo con* [id number] IMPRESSION: 1. No evidence of restricted diffusion to suggest acute ischemia. 2. Moderate small vessel changes. Mild parenchymal volume loss. Small vessel c hanges in the espinoza. 3. Temporal lobes and hippocampal formations are normal in appearance. 4. No hemosiderin on the susceptibly weighted images. 5. Tiny chronic lacunar infarct RIGHT thalamus. Tiny chronic lacunar infarct R IGHT cerebellum.
== END 2024-08-20 15:33 | disposition home or self-care (01) ==
LOC: RAD 15:32
PROVIDERS: PCP Family Medicine; Visit Provider Family Medicine
DX: I67.82 Cerebral ischemia (principal); I63.81 Other cerebral infarction due to occlusion or stenosis of small artery; R41.3 Other amnesia; R41.82 Altered mental status, unspecified; G25.3 Myoclonus
CPT/HCPCS: 70551

== ENCOUNTER → 2024-08-29 09:02 | Outpatient (BNVA) | payer MEDICARE, SELFPAY | PROVIDERS: PCP Family Medicine; Visit Provider Family Medicine | DX: R31.9 Hematuria, unspecified | CPT/HCPCS: 87086 ==

== ENCOUNTER → 2024-10-09 08:48 | Outpatient (BNVA) | payer MEDICARE, SELFPAY | PROVIDERS: PCP Family Medicine; Visit Provider Family Medicine | DX: E78.00 Pure hypercholesterolemia, unspecified (principal); I10 Essential (primary) hypertension; F33.2 Major depressive disorder, recurrent severe without psychotic features; N18.31 Chronic kidney disease, stage 3a; M54.9 Dorsalgia, unspecified; G89.29 Other chronic pain; F17.210 Nicotine dependence, cigarettes, uncomplicated | CPT/HCPCS: 80053; 80061 ==

== ENCOUNTER → 2024-11-20 16:10 | Outpatient (BNVA) | payer MEDICARE, SELFPAY | PROVIDERS: PCP Family Medicine; Visit Provider Family Medicine | DX: R31.9 Hematuria, unspecified (principal) | CPT/HCPCS: 87086 ==

== ENCOUNTER 2025-04-13 14:13 | Outpatient (CLI) | payer MEDICARE, SELFPAY ==
--- NOTE | 2025-04-13 | MM_ITS ---
WS: [email or web address] BILATERAL 3D TOMOSYNTHESIS DIGITAL SCREENING MAMMOGRAPHY WITH CAD CLINICAL INFORMATION: ANNUAL SCREENING HISTORY: Screening mammogram. No current complaints. COMPARISON: 2023 TECHNIQUE: Bilateral CC and MLO views. FINDINGS: The breasts are composed of heterogeneous fibroglandular density tissue, which can limit the detection of small underlying mass lesions. No suspicious mass, asymmetry, calcifications, or architectural distortion. No evidence of malignancy. Incidental punctate and lucent centered calcifications. MM/MM [facility] tomosynthesis [id number] IMPRESSION: DENSITY: The breasts are heterogeneously dense, which may obscure small masses. BI-RADS: 2 - Benign FOLLOW UP: 1 Year Follow-up Recommend return to annual screening mammography.
== END 2025-04-13 14:14 | disposition home or self-care (01) ==
PROVIDERS: PCP Family Medicine; Visit Provider Family Medicine
DX: Z12.31 Encounter for screening mammogram for malignant neoplasm of breast (principal); R92.323 Mammographic fibroglandular density, bilateral breasts; R92.333 Mammographic heterogeneous density, bilateral breasts; R92.1 Mammographic calcification found on diagnostic imaging of breast
CPT/HCPCS: 77063; 77067

== ENCOUNTER 2025-06-11 15:07 | Outpatient (CLI) | payer MEDICARE, OTHER, SELFPAY ==
--- NOTE | 2025-06-11 15:30 | CT_ITS ---
WS: [email or web address] LDCT LUNG CANCER SCREENING HISTORY: smoker, 46 pk yr; screening TECHNIQUE: Axial imaging performed from the apices to 1 cm below the costophrenic angles. Coronal and sagittal reformats are submitted with axial MIP series. All CT scans at [facility] use at least one of these dose optimization techniques: automated exposure control; mA and/or kV adjustment per patient size (includes targeted exams where dose is matched to clinical indication); or iterative reconstruction. DLP: 55.32 mGy.cm DIvol: Mean CTDIvol: 1.20 (mGy) COMPARISON: None available. Diagnostic quality: Satisfactory Lungs: Moderate pulmonary hyperinflation. Linear atelectasis in the anterior upper lobes. There is mild hazy and groundglass attenuation in the RIGHT middle lobe and in the lower lung childers. Mild bronchiectasis in the RIGHT middle lobe. No nodule or mass. Heart: Normal size heart with no pericardial effusion.. Coronary artery stents. Other findings: Mild atherosclerosis aorta. Normal size pulmonary artery. No adenopathy. Small hiatal hernia. No adrenal mass. Moderate thoracic spondylosis. No destructive bone lesions. CT/CT lung screening [id number] IMPRESSION: LUNG-RADS: 1-Negative FOLLOW UP: 12 Month: Continue annual screening with LDCT OTHER FINDINGS (S MODIFIER): None.
== END 2025-06-11 15:08 | disposition home or self-care (01) ==
PROVIDERS: PCP Family Medicine; Visit Provider Family Medicine
DX: F17.210 Nicotine dependence, cigarettes, uncomplicated (principal); R91.8 Other nonspecific abnormal finding of lung field; J47.9 Bronchiectasis, uncomplicated; I70.0 Atherosclerosis of aorta; Z95.5 Presence of coronary angioplasty implant and graft; K44.9 Diaphragmatic hernia without obstruction or gangrene; M47.814 Spondylosis without myelopathy or radiculopathy, thoracic region
CPT/HCPCS: 71271

== ENCOUNTER 2025-09-18 14:26 | Outpatient (CLI) | payer MEDICARE, OTHER, SELFPAY ==
--- NOTE | 2025-09-18 14:30 | CTR_ITS ---
PROCEDURE INFORMATION: Exam: CT Abdomen And Pelvis Without Contrast Exam date and time: 09/18/2025 2:33 PM Age: 70 years old Clinical indication: Abdominal pain; Generalized; Additional Info: L flank pain; felt like she passes stone TECHNIQUE: Imaging protocol: CT of the abdomen and pelvis without contrast. Radiation optimization: All CT scans at this facility use at least one of these dose optimization techniques: automated exposure control; mA and/or kV adjustment per patient size (includes targeted exams where dose is matched to clinical indication); or iterative reconstruction. COMPARISON: 1. CT lung screening [id number] 06/11/2025 3:17 PM 2. US abdomen complete* [id number] 10/23/2023 6:55 AM RADIATION DOSE METRICS: Total DLP (mGy-cm): 374.73 FINDINGS: Lungs: The visualized portions of the lung bases are unremarkable. Heart: The heart is not enlarged. Liver: Liver is normal in size. There are no masses. No intrahepatic duct dilatation. Gallbladder and biliary ducts: One or more layering gallstones present. There is no evidence of gallbladder wall thickening or pericholecystic fluid. Pancreas: Pancreas is unremarkable. There are no masses. No pancreatic duct dilatation. Spleen: Spleen is normal in size and position. There are no splenic masses. Adrenal glands: The adrenal glands are normal. Kidneys and ureters: The kidneys are normal in size. There is some likely renal parenchymal scarring. No hydronephrosis. No definite renal stones identified. Some punctate calcifications are present which are probably renovascular. No ureteral stones are noted. Stomach and bowel: There is no evidence of bowel obstruction. There is no small bowel wall thickening. There is no large bowel wall thickening. There is no gastrointestinal diverticular disease. There is no evidence of bowel obstruction. There is no small bowel wall thickening. There is no large bowel wall thickening. There is no gastrointestinal diverticular disease. Appendix: The appendix is visualized and appears normal. Intraperitoneal space: No free fluid. No free air. Vasculature: Moderate aortic atherosclerosis. No significant aneurysm is present. There is focal ectasia just above the iliac bifurcation with a diameter of 1.7 cm. Lymph nodes: No pathologically enlarged retroperitoneal adenopathy appreciated. Urinary bladder: Unremarkable as visualized. Reproductive: Prior hysterectomy. No pelvic masses. Bones/joints: There is no acute fracture or dislocation. Severe degenerative disc disease at L2-L3. No blastic or lytic bone lesions are present. 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 Soft tissues: Soft tissues of the visible body wall demonstrate no masses, ectopic air or fluid collections. CT/CT abdomen pelvis wo con [id number] IMPRESSION: 1. Cholelithiasis. No CT evidence for cholecystitis. 2. No urinary tract abnormalities identified. Specifically no evidence of stone or obstruction. No evidence of rib fracture or disc abnormality. 3. 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 This appears to be unchanged.
== END 2025-09-18 14:27 | disposition home or self-care (01) ==
LOC: RAD 14:27
PROVIDERS: PCP Family Medicine; Visit Provider Family Medicine
DX: K80.20 Calculus of gallbladder without cholecystitis without obstruction (principal); N28.89 Other specified disorders of kidney and ureter; Z90.710 Acquired absence of both cervix and uterus; M51.369 Other intervertebral disc degeneration, lumbar region without mention of lumbar back pain or lower extremity pain
CPT/HCPCS: 74176